=== PATIENT | female | born 1985 | race Caucasian/White ===

== ENCOUNTER 2017-10-14 15:28 | Inpatient (IN) | payer OTHER ==
[~2017-10-14] VITALS: Ht 172.7 cm; Wt 114.5 kg
[2017-10-31] VITALS (36 sets, daily range): BP systolic 105–148; BP diastolic 55–91; PULSE 68–112; TEMP 97.6–98.1
[2017-10-31] MEDS ORDERED: PRENATAL1 TA7 PO (09:56)
[2017-10-31 10:57] LABS: HEMATOCRIT 32.5 % (37.0-47.0); HEMOGLOBIN 11.4 g/dl (12.5-16.0); MEAN CELL VOLUME 89 fl (80.0-100.0); MEAN CORPUSCULAR HEMOGLOBIN 31 pg (27.0-31.0); MEAN CORPUSCULAR HGB CONC 35 g/dl (33.0-37.0); MEAN PLATELET VOLUME 13.7 fl (7.4-10.4); PLATELET COUNT 141 K/mm3 (130-400); RED BLOOD COUNT 3.64 M/mm3 (4.10-5.30); REDCELL DISTRIBUTION WIDTH-CV 14.4 % (11.5-14.5)
[2017-10-31 11:37] LABS: BAND 4 % (0-10); EOSINOPHIL 8 % (0-4); LYMPHOCYTE 16 % (20.0-51.0); NEUTROPHILS 63 % (42.0-75.2)
[2017-10-31 11:38] LABS: PLATELET ESTIMATE DECREASED (NORMAL); POLYCHROMASIA 1+
[2017-10-31] MEDS ORDERED: PERCOCET 325 MG1 TA2 PO (12:50)
[2017-10-31] MEDS ORDERED: MOTRIN 800800 MG/TAB PO (12:50)
[2017-11-01 08:27] VITALS: BP 117/68; PULSE 84; TEMP 97.6
[2017-11-01 16:39] VITALS: BP 120/64; PULSE 93; TEMP 97.9
[2017-11-01 19:00] VITALS: BP 112/51; PULSE 84; TEMP 97.9
[2017-11-02 07:00] VITALS: BP 133/71; PULSE 96; TEMP 98.3
== END 2017-11-02 15:05 | disposition home or self-care (01) | DRG 775 ==
LOC: LDR 10-31 08:28 → OB 10-31 09:35 → LDR 10-31 09:35 → OB 10-31 21:30 → EDSTATUS 11-01 07:00 → LDR 11-01 07:01 → LDRO 11-01 15:28 → OB 11-02 15:05
PROVIDERS: Obstetrics & Gynecology
PROC: 10D07Z6 Extraction of Products of Conception, Vacuum, Via Natural or Artificial Opening (ICD-10-PCS; principal; 2017-10-31)
PROC: 0W8NXZZ Division of Female Perineum, External Approach (ICD-10-PCS; 2017-10-31)
PROC: 3E033VJ Introduction of Other Hormone into Peripheral Vein, Percutaneous Approach (ICD-10-PCS; 2017-10-31)
PROC: 10907ZC Drainage of Amniotic Fluid, Therapeutic from Products of Conception, Via Natural or Artificial Opening (ICD-10-PCS; 2017-10-31)
DX: O13.3 Gestational [pregnancy-induced] hypertension without significant proteinuria, third trimester (principal); K21.9 Gastro-esophageal reflux disease without esophagitis; O69.81X0 Labor and delivery complicated by cord around neck, without compression, not applicable or unspecified; O99.613 Diseases of the digestive system complicating pregnancy, third trimester; J45.990 Exercise induced bronchospasm; O99.513 Diseases of the respiratory system complicating pregnancy, third trimester; O99.824 Streptococcus B carrier state complicating childbirth; O76 Abnormality in fetal heart rate and rhythm complicating labor and delivery; Z3A.39 39 weeks gestation of pregnancy; Z37.0 Single live birth
CPT/HCPCS: J2540; J2590; J2795; J7120